=== PATIENT | male | born 1935 | race Caucasian/White ===

== ENCOUNTER 2023-03-03 07:50 | Day surgery (SDC) | payer OTHER, SELFPAY ==
--- NOTE | 2023-02-27 08:50 | PTCARENOTE ---
EKG scanned dated 02/04/23 shows cannot exclude septal infarct. See EKG in EMR dated 10/23/21 showing history of septal infarct.
[2023-03-03] VITALS (40 sets, daily range): BP systolic 115–183; BP diastolic 60–98; BMI 31.9
[2023-03-03] MEDS: NSS 500 IV (08:35)
[2023-03-03 08:48] LABS: Hematocrit 42.1 % (39.0-52.0); Hemoglobin 14.6 g/dL (13.0-18.0); Mean Corp Hgb Conc. 34.7 g/dL (33.0-37.0); Mean Corpuscular Hgb 31.7 pg (27.0-31.0); Mean Corpuscular Volume 91.3 fL (80.0-94.0); Mean Platelet Volume 10.8 fL (7.4-10.4); Platelet Count 140 10^3/uL (130-400); Red Blood Cell Count 4.61 10^6/uL (4.70-6.10); Red Cell Dist. Width 14.1 % (11.5-14.5); White Blood Cell Count 9.3 10^3/uL (4.8-10.8)
[2023-03-03 08:56] LABS: INR 0.98; PT 13.2 Sec (11.4-14.6)
[2023-03-03 08:57] LABS: APTT 29.4 Sec (23.4-35.0)
[2023-03-03 09:00] LABS: Blood Urea Nitrogen 27 mg/dl (9-20); Calcium 9.5 mg/dl (8.4-10.2); Carbon Dioxide 26 mmol/L (22-30); Chloride 99 mmol/L (98-107); Estimated Creatinine Clearance 89 ml/min; Glucose 294 mg/dl (70-99); Potassium 4.4 mmol/L (3.5-5.1); Sodium 136 mmol/L (135-145); eGFR > 60.00
[2023-03-03 09:01] LABS: Glucose - Point of Care 262 mg/dl (70-99)
[2023-03-03] MEDS: NOVOLOG vial 2 UNITS SC (09:17)
--- NOTE | 2023-03-03 09:54 | W.SUR.PREOP ---
Pre-Operative Surgical Note
-
I have examined this patient prior to the performance of the scheduled procedure.
The patient's condition is unchanged from the time of the current History and
Physical and the patient is able to undergo the scheduled procedure.
--- NOTE | 2023-03-03 11:48 | W.IMMPOSTOP ---
Surgical Immed Post Op Note
-
Primary Surgeon: Diego Simms III, MD
Assisting Surgeon: Joel Troncoso MD
Pre-op Diagnosis: PAD
Post-op Diagnosis: PAD
Procedure Performed: Aorto-biliac arteriogram, RLE agram
Anesthesia Type: Sedation
Specimen / Cultures: NA
Estimated Blood Loss: 2cc
Complications: NA
Operative Findings: Severely and diffusely diseased vessels. Chronically occluded popliteal/distal vessels. Unable to perform angioplasty/stenting. Peroneal disease state not amenable to bypass.
[2023-03-03 12:29] LABS: Glucose - Point of Care 178 mg/dl (70-99)
[2023-03-03] MEDS: NSS 1000 IV (14:30)
--- NOTE | 2023-03-03 17:15 | OR.RPT ---
Operative Report
Operative Report
Date of Operation: 03/03/2023
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
Procedure:
1.) Selective catheterization of third order lower extremity artery
2.) Diagnostic aortobiiliac arteriogram
3.) Diagnostic right lower extremity arteriogram
4.) Ultrasound-guided percutaneous access to the left common femoral artery
Surgeon: Diego Simms III, MD
Gummed Tape Press Operator: Joel Troncoso MD PGY-1
Anesthesia: Sedation with local
Fluoroscopy:
40.4 min
440 mGy
106.21 Gy.cm2
Complications: None
Estimated Blood Loss: Minimal
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
Procedure in Detail: Dominik Thompson was correctly identified and placed supine on the operating table. After adequate induction of anesthesia the bilateral groins were prepped and draped in the usual sterile fashion. A timeout was performed with
the nursing and anesthesia staff confirming the patient's identity as well as the nature and laterality of the procedure.
The left common femoral artery was identified under ultrasound guidance. The artery was patent but calcified. The superior and inferior aspects of the femoral head were identified with radiographic guidance and marked at the skin level. The proposed
puncture site was infiltrated with local anesthesia. We saved a copy of the ultrasound image to the medical record. Under ultrasound guidance we accessed the left common femoral artery with a micropuncture needle and upsized to a 5 Fr sheath over a
Epizymeson wire. The wire and a [employer] hook flush catheter were advanced into the distal abdominal aorta and a diagnostic aorto-biiliac arteriogram was performed:
AORTO-ILIAC ARTERIOGRAM:
Significant tortuosity was identified in the aortoiliac segment
Aorta: Diffuse peripheral calcification but patent with no significant stenosis identified
Right common iliac artery: Diffusely calcified but patent with no significant stenosis identified
Right external iliac artery: Patent with no significant stenosis identified
Left common iliac artery: Diffusely calcified but patent with no significant stenosis identified
Left external iliac artery: Patent with no significant stenosis identified
Under roadmap guidance using a Glidewire and the [employer] hook catheter we selected the right common iliac artery and then the external iliac artery. A Quickcross catheter was tracked up and over the aortic bifurcation and placed in the distal
external iliac artery. A diagnostic right lower extremity arteriogram was then performed which demonstrated the following:
RIGHT LOWER EXTREMITY:
Common femoral artery: Diffuse bulky calcified plaque identified with areas of stenosis near the femoral bifurcation
Profunda femoral artery: Patent with no significant stenosis identified
Superficial femoral artery: Diffuse calcification. Scattered areas of focal bulky calcified luminal plaque contributing to scattered areas of moderate to high-grade stenosis throughout the length of the artery
Popliteal artery: Densely calcified plaque in the popliteal artery behind the knee. Limited reconstitution of the popliteal artery below the knee with very sluggish flow. The distal below-knee popliteal artery and tibioperoneal trunk are heavily
calcified and appear to be occluded.
Anterior tibial artery: Occluded. Heavily calcified
Tibioperoneal trunk: Occluded. Heavily calcified
Peroneal artery: Reconstitutes via collaterals and is patent to the ankle but is a diminutive artery and diffusely calcified.
Posterior tibial artery: Occluded. Heavily calcified
Significant small vessel disease is identified in the foot.
ATTEMPTED ENDOVASCULAR INTERVENTION:
Systemic heparin was administered. Exchanged out for a 6 Fr 70 cm sheath over a Amplatz wire. Selected the right superficial femoral artery and above-knee popliteal artery under roadmap guidance with Quickcross catheter and glidewire. SFA stenoses
were crossed quite easily with this approach. Attempted to cross the heavily calcified occluded popliteal artery behind the knee with 2 separate 0.014 COO wires and a 0.014 Quickcross but failed. Also attempted with a stiff glidewire and a 0.035
Quickcross but also failed. Additional attempts were abandoned.
COMPLETION ARTERIOGRAM: Densely calcified occlusive plaque in the right popliteal artery. Reconstituted peroneal artery is the lone tibial artery runoff distally. Flow into the foot is identified, albeit limited.
The sheath tip was pulled back into the left external iliac artery. Protamine was administered. The sheath was removed and direct manual pressure was held over the puncture site. Hemostasis was achieved. A sterile dressing was applied.
The patient tolerated the procedure well and was taken to the recovery area in stable condition.
Attestation: I was present and responsible for the entire procedure.
Signed:
Diego Simms III, MD
[facility]
[phone] (cell)
== END 2023-03-03 18:05 | disposition home or self-care (01) ==
LOC: CATH 07:50
PROVIDERS: ATTENDING PHYSICIAN Surgery Vascular Surgery; FAMILY PHYSICIAN Internal Medicine
DX: I70.235 Atherosclerosis of native arteries of right leg with ulceration of other part of foot (principal); L97.519 Non-pressure chronic ulcer of other part of right foot with unspecified severity; Z79.01 Long term (current) use of anticoagulants; Z79.4 Long term (current) use of insulin; I10 Essential (primary) hypertension; I48.91 Unspecified atrial fibrillation; E78.5 Hyperlipidemia, unspecified; Z86.73 Personal history of transient ischemic attack (TIA), and cerebral infarction without residual deficits; I25.2 Old myocardial infarction; Z91.041 Radiographic dye allergy status; Z89.422 Acquired absence of other left toe(s)
CPT/HCPCS: 36247; 75716; 75625; 76937; 80048; 82962; 85027; 85610; 85730; 86850; 86900; 86901; C1769; C1887; C1894; Q9967